=== PATIENT | female | born 2000 | race African-American/Black ===

== ENCOUNTER 2024-09-14 16:08 | Emergency (ER) | payer MEDICAID, OTHER ==
[~2024-09-14] VITALS: Ht 157.5 cm; Wt 79.0 kg
[2024-09-14 16:14] VITALS: O2SAT 100
[2024-09-14 19:28] LABS: BASOPHILS % 0.6 % (0.0-2.0); EOSINOPHILS % 0.7 % (0.0-5.0); HEMATOCRIT. 37.7 % (36.0-48.0); HEMOGLOBIN. 12.6 g/dL (12.0-16.0); LYMPHOCYTES % 16.9 % (20.0-50.0); MEAN CORPUSCULAR HEMOGLOBIN 32.4 pg (28.0-32.0); MEAN CORPUSCULAR HGB CONC 33.5 g/dL (31.0-37.0); MEAN CORPUSCULAR VOLUME 96.8 fL (81.0-99.0); MEAN PLATELET VOLUME 8.2 fl (7.4-10.4); MONOCYTES % 8.9 % (2.0-8.0); NEUTROPHILS % 72.9 % (40.0-76.0); PLATELET 302 x1000/uL (130-400); RED CELL DISTRIBUTION WIDTH 14.4 % (11.6-14.6); WHITE BLOOD COUNT 11.2 x1000/uL (4.5-11.0)
[2024-09-14 19:34] LABS: CARBON DIOXIDE 25 mEq/L (21-32); CHLORIDE 105 mEq/L (98-107); POTASSIUM 3.8 mEq/L (3.5-5.1); SODIUM 137 mEq/L (136-145)
[2024-09-14 19:35] LABS: CALCIUM 9.3 mg/dL (8.7-10.4)
[2024-09-14 19:40] LABS: CREATININE 0.6 mg/dL (0.6-1.0); GLUCOSE 81 mg/dL (70-105); UREA NITROGEN BLOOD 5 mg/dL (9-23)
[2024-09-14 19:48] LABS: TROPONIN I HIGH SENSITIVITY < 4 ng/L (3.0-34)
[2024-09-14 20:55] VITALS: BP 123/84; PULSE 74; RESP 16; TEMP 37.00296; O2SAT 100
== END 2024-09-14 21:01 | disposition home or self-care (01) ==
LOC: ER 16:08
DX: O26.891 Other specified pregnancy related conditions, first trimester (principal); R55 Syncope and collapse; Z3A.00 Weeks of gestation of pregnancy not specified
CPT/HCPCS: 36415; 71045; 80048; 84484; 85025; 93005; 99285

== ENCOUNTER 2025-05-17 09:47 | Emergency (ER) | payer MEDICAID, OTHER ==
[~2025-05-17] VITALS: Ht 157.5 cm; Wt 72.0 kg
[2025-05-17 09:59] VITALS: O2SAT 100
[2025-05-17 12:38] VITALS: BP 149/89; PULSE 60; RESP 18; TEMP 36.6; O2SAT 100
== END 2025-05-17 12:40 | disposition home or self-care (01) ==
LOC: ER 09:47
DX: J45.909 Unspecified asthma, uncomplicated (principal); Z20.822 Contact with and (suspected) exposure to COVID-19; Z90.49 Acquired absence of other specified parts of digestive tract
CPT/HCPCS: 87426; 99283